=== PATIENT | female | born 1970 | race African-American/Black ===

== ENCOUNTER 2017-07-03 07:42 | Day surgery (SDC) | payer MEDICARE ==
[~2017-07-03] VITALS: Ht 165.1 cm; Wt 86.2 kg
[~2017-07-03 07:42] MED LIST: AMLOD/BENAZP1 CA2 PO; AMLODIPINE5 MG PO; AMOXICILLIN/CL875 MG PO; BACTRIM DS1 TAB OR; BACTRIM DS1 TAB PO; BENAZEPRIL20 M1 PO; BUSPAR15 M1 PO; BUSPAR5 MG PO; CLEOCIN300 MG PO; CLINDAMYCIN PHOSP11 EX; CLINDAMYCIN300 M1 PO; DOXYCYCL HYC100 MG PO; EFFEXOR; EFFEXOR XR150 MG PO; EFFEXOR XR75 MG PO; HYDROCHLOROT25 MG PO; HYDROCHLOROTH12.5 MG OR; HYDROCO/APAP1 T10 PO; IBUPROFEN200 MG; KLOR-CON M2020 MEQ PO; LORTAB 10 OR; LORTAB 10 PO; LOTREL 2.5/101 CAP OR; MEDDOSEPAK PO; METRONIDAZOLE 1% EX; RIFAMPIN300 MG PO; SUDAFED PE10 MG; TOBRAMYCIN0.3 % OD; TORADOL OR; TRAZODONE100 MG PO; TRAZODONE50 MG PO; TRICOR145 MG PO; TRICOR48 MG PO; ULTRAM50 M1 PO; VENLAFAXINE HCL75 M1 PO
[2017-07-03] MEDS ORDERED: MOTRIN800 MG PO (10:45)
[2017-07-03 11:03] VITALS: BP 135/94
== END 2017-07-03 11:05 | disposition home or self-care (01) ==
LOC: ORM 07:42
PROVIDERS: ATTEND Surgery
PROC: 0JBD0ZZ Excision of Right Upper Arm Subcutaneous Tissue and Fascia, Open Approach (ICD-10-PCS; principal; 2017-07-03)
DX: L73.2 Hidradenitis suppurativa (principal)

== ENCOUNTER 2021-07-06 07:28 | Day surgery (SDC) | payer MEDICARE, MEDICAID ==
[~2021-07-06] VITALS: Ht 165.1 cm; Wt 81.6 kg
[~2021-07-06 07:28] MED LIST changes: +MOTRIN800 MG PO
[2021-07-06] MEDS ORDERED: PERCOCET 5/321 COMBO PO (08:35)
[2021-07-06 10:49] VITALS: BP 178/116
== END 2021-07-06 10:19 | disposition home or self-care (01) ==
LOC: ORM 07:28
PROVIDERS: ATTEND Surgery
PROC: 0HBT0ZX Excision of Right Breast, Open Approach, Diagnostic (ICD-10-PCS; principal; 2021-07-06)
DX: N61.21 Granulomatous mastitis, right breast (principal); N60.21 Fibroadenosis of right breast; N60.11 Diffuse cystic mastopathy of right breast; N60.81 Other benign mammary dysplasias of right breast; F17.200 Nicotine dependence, unspecified, uncomplicated; I10 Essential (primary) hypertension
CPT/HCPCS: J0131

== ENCOUNTER 2022-03-27 08:27 | Day surgery (SDC) | payer MEDICARE, MEDICAID ==
[~2022-03-27] VITALS: Ht 165.1 cm; Wt 83.9 kg
[~2022-03-27 08:27] MED LIST changes: +B121000 MC1 PO; +D3 50005000 UNIT PO; +FENOFIBRATE145 MG PO; +PERCOCET 5/321 COMBO PO
[2022-03-27] MEDS ORDERED: PERCOCET 5/321 COMBO PO (10:15)
[2022-03-27] MEDS ORDERED: BACTRIM DS1 TAB PO (10:17)
[2022-03-27 12:36] VITALS: BP 145/91
== END 2022-03-27 12:40 | disposition home or self-care (01) ==
LOC: ORM 08:27
PROVIDERS: ATTEND Surgery
PROC: 0HBT0ZX Excision of Right Breast, Open Approach, Diagnostic (ICD-10-PCS; principal; 2022-03-27)
DX: L73.2 Hidradenitis suppurativa (principal); N60.01 Solitary cyst of right breast; D24.1 Benign neoplasm of right breast; I10 Essential (primary) hypertension
CPT/HCPCS: J0131